=== PATIENT | female | born 1975 | race Caucasian/White ===

== ENCOUNTER 2016-06-23 18:12 | Emergency (ER) | payer OTHER ==
[2016-06-23] MEDS ORDERED: Ibuprofen TAB* 400 MG PO ONE (20:19)
[2016-06-23] MEDS ORDERED: HYDROcodone/ACETAMIN 5-325 MG* 1 TAB PO ONE (20:19)
[2016-06-23 20:31] VITALS: BP 110/80
--- NOTE | 2016-06-23 20:38 | UC ---
Minor Trauma HPI - HPI Summary HPI Summary: Fell backward on stairs in the evening 4 nights ago. Went to bed and woke up with lots of pain near R flank on lower rib cage. Now having lots of pain with movement, coughing, breathing, and walking. - History of Current Complaint Chief Complaint: UCBackPain Stated Complaint: BACK PAIN Time Seen by Provider: 06/23/16 20:08 Hx Obtained From: Patient Hx Last Menstrual Period: current ?: No Onset/Duration: Sudden Onset Onset Of Pain: Post Accident Severity Initially: Mild Severity Currently: Severe Mechanism Of Injury: Fall From A Standing Position - on stairs Aggravating Factor(s): Ambulation, Coughing, Deep Breaths, Movement Alleviating Factor(s): Nothing - Allergies/Home Medications Allergies/Adverse Reactions: Allergies Allergy/AdvReac Type Severity Reaction Status Date / Time Nitrofurantoin Allergy Unknown Unknown Verified 06/23/16 18:56 [From Macrodantin] Reaction Details PMH/Surg Hx/FS Hx/Imm Hx Previously Healthy: Yes Endocrine History Of: Denies: Diabetes, Thyroid Disease Cardiovascular History Of: Denies: Cardiac Disorders, Hypertension Respiratory History Of: Denies: COPD, Asthma GI/ History Of: Denies: Ulcer - Surgical History Surgical History: Yes Surgery Procedure, Year, and Place: 2005 tubal ligation, laparoscopy, tonsillectomy - Family History Known Family History: Positive: Hypertension - Social History Occupation: Employed Full-time Lives: With Family Alcohol Use: Occasionally Substance Use Type: None Smoking Status (MU): Light Every Day Tobacco Smoker - Immunization History Most Recent Influenza Vaccination: none Most Recent Tetanus Shot: out of date Review of Systems Constitutional: Negative Skin: Negative Eyes: Negative ENT: Negative Respiratory: Negative Cardiovascular: Negative Gastrointestinal: Negative Genitourinary: Negative Motor: Negative Neurovascular: Negative Musculoskeletal: Arthralgia Neurological: Negative Psychological: Negative All Other Systems Reviewed And Are Negative: Yes Physical Exam Triage Information Reviewed: Yes Appearance: Well-Nourished, Pain Distress - with movement and palpation Vital Signs: Initial Vital Signs Temp 97.9 F 06/23/16 18:57 Pulse 70 06/23/16 18:57 Resp 16 06/23/16 18:57 BP 133/88 06/23/16 18:57 Pulse Ox 100 06/23/16 18:57 Vital Signs Reviewed: Yes Eye Exam: Normal Eyes: Positive: Conjunctiva Clear ENT Exam: Normal ENT: Positive: Normal ENT inspection, Hearing grossly normal, Pharynx normal, TMs normal Dental Exam: Normal Neck exam: Normal Neck: Positive: Supple, Nontender, No Lymphadenopathy Respiratory Exam: Normal Respiratory: Positive: Chest non-tender, Lungs clear, Normal breath sounds, No respiratory distress, No accessory muscle use Cardiovascular Exam: Normal Cardiovascular: Positive: RRR, No Murmur Abdomen Description: Positive: CVA Tenderness (R) Musculoskeletal Exam: Normal Neurological Exam: Normal Neurological: Positive: Alert Psychological Exam: Normal Skin Exam: Normal Minor Trauma Course/Dx - Differential Dx/Diagnosis Provider Diagnoses: R 10th rib fracture Discharge - Discharge Plan Condition: Stable Disposition: HOME Patient Education Materials: Rib Fracture (ED) Forms: *Work Release Additional Instructions: The radiologist also saw a single fracture in your 10th rib. Please try to keep your pain tolerable enough that you can breathe and cough easily. It may help to hold a pillow to your painful spot while you cough. Come back right away if you develop fever, trouble breathing, or otherwise worsen.
--- NOTE | 2016-06-23 20:52 | RAD ---
INDICATION: Right rib injury. TECHNIQUE: 4 views of the right ribs and a PA view of the chest were obtained. FINDINGS: There is mild cortical irregularity present along the posterior right 10th rib suspicious for a nondisplaced fracture. No other fractures are seen The heart is within normal limits in size. The lungs are clear. There is no evidence for pneumothorax or pleural effusion. IMPRESSION: PROBABLE NONDISPLACED FRACTURE OF THE RIGHT POSTERIOR 10TH RIB.
== END 2016-06-23 21:12 | disposition home or self-care (01) ==
LOC: UCEAST 18:12
DX: S22.31XA Fracture of one rib, right side, initial encounter for closed fracture (principal); F17.210 Nicotine dependence, cigarettes, uncomplicated; W10.9XXA Fall (on) (from) unspecified stairs and steps, initial encounter
CPT/HCPCS: 81003; 99202; A9270-GY; G0463

== ENCOUNTER 2016-08-19 14:11 | Emergency (ER) | payer SELFPAY ==
[2016-08-19 14:27] VITALS: BP 120/67
[2016-08-19] MEDS ORDERED: Tetan/Diph/Pertus SYR(Tdap)* 0.5 ML SYR(BOOSTRIX) use SYR IM ONE (14:58)
[2016-08-19] MEDS ORDERED: Lidocaine/Epineph/Tetraca SOL* (LET solution) 4 ML BTL TOPICAL ONE (15:52)
[2016-08-19] MEDS ORDERED: Gelfoam 12-7 ADSORBABL SPONGE* 1 EA SPONGE TOPICAL ONE (16:08)
--- NOTE | 2016-08-19 18:05 | UC ---
Laceration HPI - HPI Summary HPI Summary: LEFT HAND LACERATION TO LEFT 2ND FINGER, AND RIGHT FIFTH FINGER AFTER HEAD OF STRATEGY RECOILED. - History Of Current Complaint Chief Complaint: UCLaceration Stated Complaint: HAND LACERATION Time Seen by Provider: 08/19/16 14:57 Hx Obtained From: Patient Laceration Location: Finger - LEFT SECOND; RIGHT 5TH Mechanism Of Injury: Blunt Trauma Onset/Duration: Sudden Onset, Lasting Hours, Still Present Severity: Mild Pain Intensity: 0 Pain Scale Used: 0-10 Numeric Related History: Occupational Injury, Dominant Hand Right - Allergies/Home Medications Allergies/Adverse Reactions: Allergies Allergy/AdvReac Type Severity Reaction Status Date / Time Nitrofurantoin Allergy Unknown Unknown Verified 08/19/16 14:27 [From Macrodantin] Reaction Details Home Medications: Home Medications NK [No Home Medications Reported] 08/19/16 [History Confirmed 08/19/16] PMH/Surg Hx/FS Hx/Imm Hx Previously Healthy: Yes - Surgical History Surgical History: Yes Surgery Procedure, Year, and Place: 2005 tubal ligation, laparoscopy, tonsillectomy - Family History Known Family History: Positive: Hypertension - Social History Occupation: Employed Full-time Lives: With Family Alcohol Use: Occasionally Substance Use Type: None Smoking Status (MU): Light Every Day Tobacco Smoker - Immunization History Most Recent Influenza Vaccination: none Most Recent Tetanus Shot: 15 yrs ago Review of Systems Constitutional: Negative Skin: Other - LACERATION LEFT 2ND FINGER; RIGHT 5TH FINGER Eyes: Negative ENT: Negative Respiratory: Negative Cardiovascular: Negative Gastrointestinal: Negative Genitourinary: Negative Motor: Negative Neurovascular: Negative Musculoskeletal: Negative Neurological: Negative Psychological: Negative All Other Systems Reviewed And Are Negative: Yes Physical Exam Triage Information Reviewed: Yes Appearance: Well-Appearing, No Pain Distress, Well-Nourished Vital Signs: Initial Vital Signs Temp 98.8 F 08/19/16 14:22 Pulse 76 08/19/16 14:22 Resp 12 08/19/16 14:22 BP 120/67 08/19/16 14:22 Pulse Ox 100 08/19/16 14:22 Vital Signs Reviewed: Yes Eye Exam: Normal ENT Exam: Normal ENT: Positive: Normal ENT inspection, Hearing grossly normal, TMs normal Dental Exam: Normal Neck exam: Normal Respiratory Exam: Normal Respiratory: Positive: Chest non-tender, Lungs clear, Normal breath sounds, No respiratory distress Cardiovascular Exam: Normal Cardiovascular: Positive: RRR, No Murmur, Pulses Normal Abdominal Exam: Normal Musculoskeletal Exam: Normal Neurological Exam: Normal Psychological Exam: Normal Psychological: Positive: Normal Response To Family Skin: Positive: Other - LACERATION LEFT 2ND FINGER; RIGHT 0.5 Laceration Repair - Laceration Repair 1 Description: Irregular Laceration Size After Repair: Length (cm) - 1, Width (mm) - 5, Depth (mm) - 2 Cleansing Completed Via Routine Prep: Yes Irrigation With Pressure Irrigation Device: Yes Suture Type: Other - GEL FOAM 2 Description: Linear : No Repair Necessary Laceration Size After Repair: Length (cm) - 4, Width (mm) - 2, Depth (mm) - 2 Laceration Course/Dx - Differential Dx - Laceration/Wound Differental Diagnoses: Avulsion, Cellulitis Provider Diagnoses: LEFT SECOND FINGER AVULSION INJURY; RIGHT 5TH FINGER ABRASION Discharge - Discharge Plan Condition: Stable Disposition: HOME Patient Education Materials: Laceration Without Closure (ED) Referrals: [facility]FERR[facility] [Outside] No Primary Care Phys,NOPCP [Primary Care Provider] -
== END 2016-08-19 16:25 | disposition home or self-care (01) ==
LOC: UCEAST 14:11
DX: S61.211A Laceration without foreign body of left index finger without damage to nail, initial encounter (principal); S60.416A Abrasion of right little finger, initial encounter; W31.9XXA Contact with unspecified machinery, initial encounter; Z23 Encounter for immunization
CPT/HCPCS: 90471; 90715; 99212; A9270-GY; G0463

== ENCOUNTER 2017-04-08 14:07 | Emergency (ER) | payer SELFPAY ==
[2017-04-08 15:48] VITALS: BP 129/84
[2017-04-08] MEDS ORDERED: Lidocaine 2% PF * 5 ML VIAL INJ ONE (16:57)
--- NOTE | 2017-04-08 17:09 | UC ---
Laceration HPI - HPI Summary HPI Summary: laceration to palm of right hand this morning on sheet metal at work---tetanus up to date - History Of Current Complaint Chief Complaint: UCLaceration Stated Complaint: HAND LAC Time Seen by Provider: 04/08/17 16:50 Hx Obtained From: Patient Hx Last Menstrual Period: now Laceration Location: Hand - right palm base of index finger Mechanism Of Injury: Sharp Trauma Onset/Duration: Sudden Onset, Lasting Hours Severity: Mild Pain Intensity: 1 Pain Scale Used: 0-10 Numeric - Allergies/Home Medications Allergies/Adverse Reactions: Allergies Allergy/AdvReac Type Severity Reaction Status Date / Time Nitrofurantoin Allergy Unknown Unknown Verified 04/08/17 15:48 [From Macrodantin] Reaction Details PMH/Surg Hx/FS Hx/Imm Hx Previously Healthy: Yes - Surgical History Surgical History: Yes Surgery Procedure, Year, and Place: 2006 tubal ligation, laparoscopy, tonsillectomy - Family History Known Family History: Positive: Hypertension, Other - mother with multiple myeloma - Social History Occupation: Unemployed Lives: With Family Alcohol Use: Occasionally Substance Use Type: None Smoking Status (MU): Light Every Day Tobacco Smoker - Immunization History Most Recent Influenza Vaccination: none Most Recent Tetanus Shot: 2017 Review of Systems Constitutional: Negative Skin: Other - laceration palm of right hand Eyes: Negative ENT: Negative Respiratory: Negative Cardiovascular: Negative Gastrointestinal: Negative Genitourinary: Negative Motor: Negative Neurovascular: Negative Musculoskeletal: Negative Neurological: Negative Psychological: Negative Is Patient Immunocompromised?: No All Other Systems Reviewed And Are Negative: Yes Physical Exam Triage Information Reviewed: Yes Appearance: Well-Appearing, No Pain Distress, Well-Nourished Vital Signs: Initial Vital Signs Temp 98.7 F 04/08/17 15:44 Pulse 70 04/08/17 15:44 Resp 18 04/08/17 15:44 BP 129/84 04/08/17 15:44 Pulse Ox 100 04/08/17 15:44 Vital Signs Reviewed: Yes Eye Exam: Normal Eyes: Positive: Conjunctiva Clear ENT Exam: Normal ENT: Positive: Normal ENT inspection, Hearing grossly normal. Negative: TMs normal, Trismus, Muffled voice, Hoarse voice, Dental tenderness Dental Exam: Normal Neck exam: Normal Neck: Positive: Supple, Nontender Respiratory Exam: Normal Respiratory: Positive: Chest non-tender, No respiratory distress, No accessory muscle use Cardiovascular Exam: Normal Cardiovascular: Positive: RRR, Pulses Normal, Brisk Capillary Refill Musculoskeletal Exam: Normal Musculoskeletal: Positive: Strength Intact, ROM Intact, No Edema Neurological Exam: Normal Neurological: Positive: Alert, Muscle Tone Normal Psychological Exam: Normal Skin Exam: Other Skin: Positive: Other - laceration palm of right hand Laceration Repair - Laceration Repair 1 Description: Linear Laceration Size After Repair: Length (cm) - 1.5 Modified For Repair: No Type Injection: Local Anesthesia Used: 2.0% Lido - 4 ml Cleansing Completed Via Routine Prep: Yes Irrigation With Pressure Irrigation Device: Yes Closure Method: Single Layer Suture Of: Skin Suture Type: Nylon - 6 number 5.0 suture Laceration Course/Dx - Course/Dx Course Of Treatment: dressing and splint, tylenol, ibuprofen for pain return in 10 days for suture removal - Differential Dx - Laceration/Wound Provider Diagnoses: 1.5 cm laceration right palm with suture repair Discharge - Discharge Plan Condition: Stable Disposition: HOME Patient Education Materials: Ibuprofen (By mouth), Finger Laceration (ED) Forms: *Work Release Referrals: No Primary Care Phys,NOPCP [Primary Care Provider] - Additional Instructions: follow with primary care doctor or return in 10 days for suture removal
== END 2017-04-08 17:54 | disposition home or self-care (01) ==
LOC: UCEAST 14:07
DX: S61.411A Laceration without foreign body of right hand, initial encounter (principal); W26.8XXA Contact with other sharp object(s), not elsewhere classified, initial encounter; Y93.9 Activity, unspecified; Y92.9 Unspecified place or not applicable; Z88.1 Allergy status to other antibiotic agents; F17.200 Nicotine dependence, unspecified, uncomplicated
CPT/HCPCS: 12001; 99211; G0463

== ENCOUNTER 2017-04-18 13:09 | Emergency (ER) | payer OTHER ==
[2017-04-18 13:20] VITALS: BP 115/69
--- NOTE | 2017-04-18 13:27 | UC ---
Laceration HPI - HPI Summary HPI Summary: Pt presents for removal of 6 sutures from right hand placed 10 days ago. She tells me that she has had no issues, but she was washing her hands 2 days ago and one suture fell out. - History Of Current Complaint Chief Complaint: UCLaceration Stated Complaint: SUTURE REMOVAL Time Seen by Provider: 04/18/17 13:21 Hx Obtained From: Patient Hx Last Menstrual Period: 04/08/17 Laceration Location: Hand Pain Intensity: 0 - Allergies/Home Medications Allergies/Adverse Reactions: Allergies Allergy/AdvReac Type Severity Reaction Status Date / Time nitrofurantoin Allergy Unknown Verified 04/18/17 13:21 [From Macrodantin] Reaction Details PMH/Surg Hx/FS Hx/Imm Hx Previously Healthy: Yes - Surgical History Surgical History: Yes Surgery Procedure, Year, and Place: 2006 tubal ligation, laparoscopy, tonsillectomy - Family History Known Family History: Positive: Hypertension, Other - mother with multiple myeloma - Social History Occupation: Employed Full-time Lives: With Family Alcohol Use: Occasionally Substance Use Type: None Smoking Status (MU): Light Every Day Tobacco Smoker - Immunization History Most Recent Influenza Vaccination: none Most Recent Tetanus Shot: 2017 Review of Systems Constitutional: Negative Skin: Other - [address] right palm Respiratory: Negative Cardiovascular: Negative Neurological: Negative Psychological: Negative All Other Systems Reviewed And Are Negative: Yes Physical Exam Triage Information Reviewed: Yes Appearance: Well-Appearing, No Pain Distress, Well-Nourished Vital Signs: Initial Vital Signs Temp 97.9 F 04/18/17 13:18 Pulse 74 04/18/17 13:18 Resp 12 04/18/17 13:18 BP 115/69 04/18/17 13:18 Pulse Ox 98 04/18/17 13:18 Vital Signs Reviewed: Yes Neck: Positive: Supple, Nontender Respiratory: Positive: Lungs clear, Normal breath sounds, No respiratory distress Cardiovascular: Positive: RRR, No Murmur, Pulses Normal Neurological: Positive: Alert, Other: - Sensations intact right hand and all fingers Psychological: Positive: Age Appropriate Behavior Skin: Positive: Other - Healed laceration to right thenar region. 5 sutures in placed. Good approximation. No erythema, edema, or drainage. Laceration Course/Dx - Course/Dx Course Of Treatment: Five sutures removed from right hand. Pt tolerated well - Differential Dx - Laceration/Wound Provider Diagnoses: Suture removal right hand (5) Discharge - Discharge Plan Condition: Stable Disposition: HOME Patient Education Materials: Stitches Removal (ED) Forms: *Gen. Provider Communication Referrals: No Primary Care Phys,NOPCP [Primary Care Provider] - Additional Instructions: If you develop a fever, shortness of breath, chest pain, new or worsening symptoms - please call your PCP or go to the ED.
== END 2017-04-18 13:33 | disposition home or self-care (01) ==
LOC: UCEAST 13:09
DX: Z48.02 Encounter for removal of sutures (principal); Z72.0 Tobacco use
CPT/HCPCS: 99211; G0463

== ENCOUNTER 2017-09-16 14:31 | Emergency (ER) | payer OTHER ==
[2017-09-16] MEDS ORDERED: Ondansetron ODT TAB* 4 MG PO ONE (18:15)
[2017-09-16] MEDS ORDERED: LORazepam TAB(*) 1 MG PO ONE (18:55)
[2017-09-16] MEDS ORDERED: Ondansetron ODT TAB* 4 MG SL ONE (18:55)
--- NOTE | 2017-09-16 19:05 | ED ---
Complex/Multi-Sys Presentation - HPI Summary HPI Summary: This is gaurav Pate documenting for attending Dr. Billy Simons MD. A 42 y/o female presents to ED c/o dry heaving and insomnia due to her new medication. According to the patient, she started a Wellbutrin prescription to quit smoking. She took 50 mg for the first 3 days, however has doubled the dose since Wednesday (3 days ago, 09/13/2017). She noted that she exhibited dry heaving , appetite changes, nausea and trouble sleeping since increasing the Wellbutrin dose. Additionally, she stated that she feels hyper as she can't relax, however really wants to sleep. Last dose of Wellbutrin was this morning at 0430. She is suppose to take a second dose later tonight. Pt denies any other current medications. Pt will be driven home by family member. It was noted that the patient has not smoked in 2 days and would like to continue this pattern slowly. - History Of Current Complaint Chief Complaint: EDGeneral Time Seen by Provider: 09/16/17 17:39 Hx Obtained From: Patient Onset/Duration: Sudden Onset, Lasting Days - Since Wednesday,09/13/2017 Timing: Constant Severity Currently: None Aggravating Factor(s): Wellbutrin Alleviating Factor(s): NOTHING Associated Signs And Symptoms: Positive: Nausea, Vomiting - Dry heaving, Other - Insomnia. Negative: Fever - Allergies/Home Medications Allergies/Adverse Reactions: Allergies Allergy/AdvReac Type Severity Reaction Status Date / Time nitrofurantoin Allergy Unknown Verified 04/18/17 13:21 [From Macrodantin] Reaction Details Home Medications: Home Medications buPROPion SR TAB* [Wellbutrin SR TAB*] 150 mg PO BID 09/16/17 [History Confirmed 09/16/17] PMH/Surg Hx/FS Hx/Imm Hx Endocrine/Hematology History: Denies: Hx Diabetes, Hx Thyroid Disease Cardiovascular History: Denies: Hx Hypertension Respiratory History: Denies: Hx Asthma, Hx Chronic Obstructive Pulmonary Disease (COPD) GI History: Denies: Hx Ulcer - Surgical History Surgery Procedure, Year, and Place: 2006 tubal ligation, laparoscopy, tonsillectomy Infectious Disease History: No Infectious Disease History: Denies: Hx Clostridium Difficile, Hx Hepatitis, Hx Human Immunodeficiency Virus (HIV), Hx Shingles, Hx Tuberculosis, History Other Infectious Disease, Traveled Outside the [place] in Last 30 Days - Family History Known Family History: Positive: Hypertension, Other - mother with multiple myeloma - Social History Alcohol Use: Occasionally Substance Use Type: Reports: None Smoking Status (MU): Light Every Day Tobacco Smoker Review of Systems Negative: Fever Positive: Vomiting - Dry heaving, Nausea, Other - POSITIVE: Appetite changes Neurological: Other - POSITIVE: insomnia All Other Systems Reviewed And Are Negative: Yes Physical Exam - Summary Physical Exam Summary: Appearance: Well-appearing, Well-nourished, lying in bed comfortably Skin: Warm, dry, no obvious rash Eyes: sclera anicteric, no conjunctival pallor ENT: mucous membranes moist, pharynx appears normal Neck: Supple, nontender Respiratory: Clear to auscultation, no signs of respiratory distress Cardiovascular: Normal S1, S2. No murmurs. Normal distal pulses in tibial and radial bilaterally. Abdomen: Soft, nontender, normal active bowel sounds present Musculoskeletal: Normal, Strength/ROM Intact Neurological: A&Ox3, awake and alert, mentation is normal, speech is fluent and appropriate Psychiatric: affect is normal, does not appear anxious or depressed Triage Information Reviewed: Yes Vital Signs On Initial Exam: Initial Vitals Temp Pulse Resp BP Pulse Ox 97.7 F 70 16 131/92 100 09/16/17 14:36 09/16/17 14:36 09/16/17 14:36 09/16/17 14:36 09/16/17 14:36 Vital Signs Reviewed: Yes Diagnostics - Vital Signs Vital Signs Temp Pulse Resp BP Pulse Ox 09/16/17 16:35 97.9 F 64 14 127/84 100 09/16/17 14:36 97.7 F 70 16 131/92 100 - Laboratory Lab Statement: Any lab studies that have been ordered have been reviewed, and results considered in the medical decision making process. Complex Multi-Symp Course/Dx - Diagnoses Provider Diagnoses: Adverse reaction to antidepressant drug Discharge - Sign-Out/Discharge Documenting (check all that apply): Patient Departure - DISCHARGE - Discharge Plan Condition: Stable Disposition: HOME Prescriptions: LORazepam TAB(*) [Ativan 0.5 MG TAB (*)] 0.5 mg PO Q6H PRN #8 tab MDD 2 mg PRN Reason: Anxiety Ondansetron TAB* [Zofran 4 MG Tab*] 8 mg PO Q6H PRN #10 tab PRN Reason: Nausea Referrals: Zeb Burger DO [Primary Care Provider] - 2 Days (FOLLOW UP WITH PRIMARY CARE PHYSICIAN IN 2-3 DAYS.) Additional Instructions: RETURN TO THE ED FOR ANY NEW OR WORSENING SYMPTOMS. - Billing Disposition and Condition Condition: STABLE Disposition: Home
[2017-09-16 19:44] VITALS: BP 142/89
== END 2017-09-16 19:41 | disposition home or self-care (01) ==
LOC: ED 14:31
DX: R11.0 Nausea (principal); G47.00 Insomnia, unspecified; T43.295A Adverse effect of other antidepressants, initial encounter; Y92.9 Unspecified place or not applicable; F17.200 Nicotine dependence, unspecified, uncomplicated; Z88.8 Allergy status to other drugs, medicaments and biological substances
CPT/HCPCS: 99281; A9270-GY

== ENCOUNTER 2019-02-08 15:39 | Emergency (ER) | payer SELFPAY ==
[2019-02-08 15:52] VITALS: BP 125/82
--- NOTE | 2019-02-08 16:06 | UC ---
Laceration HPI - HPI Summary HPI Summary: 43 yo female presents with finger laceration. She tells me that just [employer] she was using a metal tool at work and sustained a laceration to her right index finger on a sharp edge. She bandaged the area and came directly to . She is right handed. States last tetanus was 2 years ago - History Of Current Complaint Chief Complaint: UCLaceration Stated Complaint: FINGER LAC Time Seen by Provider: 02/08/19 16:06 Hx Obtained From: Patient Hx Last Menstrual Period: 02/04/19 Laceration Location: Finger Mechanism Of Injury: Sharp Trauma Onset/Duration: Sudden Onset Severity: Moderate Pain Intensity: 6 Pain Scale Used: 0-10 Numeric - Allergies/Home Medications Allergies/Adverse Reactions: Allergies Allergy/AdvReac Type Severity Reaction Status Date / Time nitrofurantoin Allergy Unknown Verified 02/08/19 15:52 [From Macrodantin] Reaction Details Home Medications: Home Medications NK [No Home Medications Reported] 02/08/19 [History Confirmed 02/08/19] PMH/Surg Hx/FS Hx/Imm Hx - Additional Past Medical History Additional PMH: None - Surgical History Surgical History: Yes Surgery Procedure, Year, and Place: 2006 tubal ligation, laparoscopy, tonsillectomy. 2018 cone biopsy - Family History Known Family History: Positive: Hypertension, Other - mother with multiple myeloma - Social History Occupation: Employed Full-time Lives: With Family Alcohol Use: Occasionally Substance Use Type: None Smoking Status (MU): Light Every Day Tobacco Smoker - Immunization History Most Recent Influenza Vaccination: none Most Recent Tetanus Shot: 2017 Review of Systems All Other Systems Reviewed And Are Negative: No Constitutional: Positive: Negative Skin: Positive: Other - Right index finger laceration Respiratory: Positive: Negative Cardiovascular: Positive: Negative Musculoskeletal: Positive: Negative Neurological: Positive: Negative Psychological: Positive: Negative Physical Exam - Summary Physical Exam Summary: GENERAL: NAD. WDWN. No pain distress. SKIN: RIGHT INDEX FINGER: Finger pad with 6mm linear laceration horiztonal and superficial. No active bleeding. Well approximated at rest. CHEST: No accessory muscle use. Breathing comfortably and in no distress. CV: Pulses intact. Cap refill <2seconds NEURO: Alert. PSYCH: Age appropriate behavior. Triage Information Reviewed: Yes Vital Signs: Initial Vital Signs Temp 98.1 F 02/08/19 15:43 Pulse 87 02/08/19 15:43 Resp 16 02/08/19 15:43 BP 125/82 02/08/19 15:43 Pulse Ox 100 02/08/19 15:43 Vital Signs Reviewed: Yes Laceration Repair - Laceration Repair 1 Description: Linear Laceration Size After Repair: Length (cm) - 0.6 Modified For Repair: No Closure Material: Skin Adhesive Closure Method: Single Layer Suture Of: Skin Laceration Course/Dx - Course/Dx Course Of Treatment: Wound cleansed with saline. No longer bleeding and very well approximated at rest and does not open with DIP movement. Dermabond applied and bandaged with tubegauze. - Diagnosis Provider Diagnosis: Finger laceration Discharge ED - Sign-Out/Discharge Documenting (check all that apply): Patient Departure All imaging exams completed and their final reports reviewed: No Studies - Discharge Plan Condition: Stable Disposition: HOME Patient Education Materials: Skin Adhesive Care (ED) Forms: *Work Release Referrals: No Primary Care Phys,NOPCP [Primary Care Provider] - Additional Instructions: If you develop a fever, shortness of breath, chest pain, new or worsening symptoms - please call your PCP or go to the ED immediately. Change the bandage daily until well healed - Billing Disposition and Condition Condition: STABLE Disposition: Home
== END 2019-02-08 16:24 | disposition home or self-care (01) ==
LOC: UCEAST 15:39
DX: S61.210A Laceration without foreign body of right index finger without damage to nail, initial encounter (principal); Z88.1 Allergy status to other antibiotic agents; F17.290 Nicotine dependence, other tobacco product, uncomplicated; W45.8XXA Other foreign body or object entering through skin, initial encounter; Y92.9 Unspecified place or not applicable; Y99.0 Civilian activity done for income or pay
CPT/HCPCS: 12001; 99211; G0463